=== PATIENT | female | born 1955 | race Hispanic/Latino ===

== ENCOUNTER 2019-02-23 14:10 | Outpatient (CLI) | payer MEDICARE | END 2019-02-23 14:11 | disposition home or self-care (01) | LOC: RAD 14:10 ==

== ENCOUNTER 2019-03-03 13:13 | Outpatient (CLI) | payer MEDICARE | END 2019-03-03 13:14 | disposition home or self-care (01) | LOC: RAD 13:13 | DX: R92.2 Inconclusive mammogram (principal) ==